=== PATIENT | female | born 1960 | race Caucasian/White ===

== ENCOUNTER 2024-05-25 17:36 | Emergency (ER) | payer OTHER, SELFPAY ==
[2024-05-25 17:40] VITALS: BP 139/92
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
[2024-05-25 19:30] VITALS: BP 134/88
== END 2024-05-25 20:47 | disposition home or self-care (01) ==
LOC: EMR 17:36
PROVIDERS: EMERGENCY PHYSICIAN Student in an Organized Health Care Education/Training Program; FAMILY PHYSICIAN Family Medicine
DX: S09.90XA Unspecified injury of head, initial encounter (principal); X58.XXXA Exposure to other specified factors, initial encounter
CPT/HCPCS: 99284; 70450

== ENCOUNTER → 2024-05-29 09:17 | Outpatient (REF) | payer OTHER, SELFPAY | LOC: MRI 3T 09:17 | PROVIDERS: ATTENDING PHYSICIAN Orthopaedic Surgery; FAMILY PHYSICIAN Family Medicine | DX: M25.511 Pain in right shoulder (principal) | CPT/HCPCS: 73221 ==